=== PATIENT | female | born 1980 | race Caucasian/White ===

== ENCOUNTER 2016-08-04 07:51 | Day surgery (SDC) | payer OTHER ==
[~2016-08-04] VITALS: Ht 160 cm; Wt 56.7 kg
[~2016-08-04 07:51] MED LIST: ALLEGRA ALLERG180 MG PO; BENTYL10 MG PO; BIOTIN1000 MCG PO; CALTRATE PLUS1 EACH PO; CURCUMIN PO; DRYSOL TP; ENTYVIO300 MG IV; FISH OIL 1,2001 EAC4 PO; FOLIC ACID1 MG PO; LIALDA1.2 GM PO; MULTIPLE VITAM1 EAC1 PO; PRILOSEC20 MG PO; PROTONIX40 MG PO; RASUVO 2525 MG/0.5 SC; VITAMIN B-12500 MC5 SL; VITAMIN C500 M1 PO; VSL#3 CAPSULE1 EACH PO; ZANTAC300 MG PO; ZOFRAN4 MG PO
[2016-08-04] MEDS ORDERED: BENADRYL25 MG PO (08:22)
[2016-08-04 08:24] VITALS: BP 131/63
[2016-08-04 09:51] LABS: INTERNAL CONTROL VALID? YES
[2016-08-04] MEDS ORDERED: COLACE100 MG PO (11:18)
[2016-08-04] MEDS ORDERED: PERCOCET 5/31 TABLET PO (11:18)
[2016-08-04 12:20] VITALS: BP 100/60
[2016-08-04 13:21] VITALS: BP 94/51
[2016-08-04 15:25] VITALS: BP 100/60
== END 2016-08-04 15:42 | disposition home or self-care (01) ==
LOC: SDC
PROVIDERS: Surgery
DX: K80.10 Calculus of gallbladder with chronic cholecystitis without obstruction (principal); K66.0 Peritoneal adhesions (postprocedural) (postinfection); M60.28 Foreign body granuloma of soft tissue, not elsewhere classified, other site; L30.9 Dermatitis, unspecified; K21.9 Gastro-esophageal reflux disease without esophagitis; R01.1 Cardiac murmur, unspecified; Z80.3 Family history of malignant neoplasm of breast; Z82.49 Family history of ischemic heart disease and other diseases of the circulatory system; Z83.79 Family history of other diseases of the digestive system; Z88.0 Allergy status to penicillin
CPT/HCPCS: 84703; 88304; J1100; J1580; J1885; J2250; J2405; J3010; J7050